=== PATIENT | female | born 1970 | race African-American/Black ===

== ENCOUNTER 2023-03-24 17:52 | Emergency (ER) | payer MEDICAID ==
[~2023-03-24] VITALS: Ht 172.7 cm; Wt 100.0 kg
[2023-03-24 18:14] VITALS: BP 135/99; PULSE 82; RESP 18; TEMP 98.7; O2SAT 95
[2023-03-24] MEDS: TETRACAINE 0.5% OPHTH DROPS 4ML RIGHTEYE NR (21:00)
[2023-03-24] MEDS: TETRACAINE 0.5% OPHTH DROPS 4ML RIGHTEYE ONE (21:00)
[2023-03-24] MEDS: FLUORESCEIN SODIUM 1MG/STRIP RIGHTEYE ONE (21:01)
[2023-03-24] MEDS: FLUORESCEIN SODIUM 1MG/STRIP RIGHTEYE NR (21:01)
[2023-03-24] MEDS ORDERED: OCUFLX RIGHTEYE (21:07)
[2023-03-24] MEDS ORDERED: VIGAMX RIGHTEYE (21:15)
== END 2023-03-24 21:24 | disposition home or self-care (01) ==
LOC: ER 19:13
DX: S00.201A Unspecified superficial injury of right eyelid and periocular area, initial encounter (principal); X58.XXXA Exposure to other specified factors, initial encounter; Y93.89 Activity, other specified; Y92.89 Other specified places as the place of occurrence of the external cause; Y99.8 Other external cause status
CPT/HCPCS: 99283